=== PATIENT | male | born 1995 | race Caucasian/White ===

== ENCOUNTER → 2016-11-23 | Outpatient (CLI) | payer BC ==
--- NOTE | 2016-11-24 07:34 | DI ---
RIGHT KNEE, 11/23/2016 3:37 PM: Clinical History: Right knee pain. Previous Exam: None at this facility. 4 views are submitted. The AP and tunnel projections are weight bearing views. There is no acute soft tissue, osseous, or joint abnormality. There is very minimal narrowing of the medial compartment on both weightbearing views. In addition, there is a bony density at the proximal aspect of the inteross eous membrane suggesting old trauma. Reading: Very mild degenerative change of the medial compartment.
== END ==
LOC: ORTHO 16:38
PROVIDERS: ATTEND Orthopaedic Surgery
DX: M25.561 Pain in right knee (principal); M25.461 Effusion, right knee
CPT/HCPCS: 73564